=== PATIENT | male | born 1950 | race Caucasian/White ===

== ENCOUNTER → 2020-03-05 08:57 | Outpatient (CLI) | payer OTHER, SELFPAY ==
--- NOTE | ~2020-03-05 | MR_ITS ---
EXAMINATION: MR shoulder RT wo con DATE: 03/05/2020 09:33 INDICATION: Right shoulder pain TECHNIQUE: Magnetic resonance imaging (MRI) of the right shoulder was performed without intravenous c ontrast. Sequences included axial PD-weighted FS FSE, coronal oblique PD-weighted FS FSE, coronal obl ique T2-weighted FS FSE, sagittal PD-weighted FS FSE, and sagittal T1-weighted SE. COMPARISON: None. FINDINGS: Coracoacromial arch: The acromion undersurface is curved in morphology (type II). Mild thickening and increased signal of the acromial insertion of the coracoacromial ligament. Moderate acromioclavicular osteoarthritis. Rotator cuff: Full-thickness tear along the superior facet footplate of the supraspinatus tendon which transitions to an articular sided tear involving the majority of the thickness of the infraspinatus tendon. The s upraspinatus tear margin is retracted approximately 4 cm medial from the region of the footplate. The re is moderate tendinopathy along the tear margin of the retracted supraspinatus tendon. The teres mi nor tendon is normal. The full-thickness tear extends anteriorly across the rotator cuff interval to involve the cephalad half of the lesser tuberosity footplate of the subscapularis tendon with moderat e tendinopathy of the intact caudal half of the subscapularis tendon. There is medial retraction of t he supraspinatus muscle belly and mild fatty atrophy of the infraspinatus muscle belly. Biceps tendon, glenoid labrum and glenohumeral cartilage: Moderate tendinopathy without discrete tear of the intra-articular long head biceps tendon. Diffuse d egenerative tearing of the glenoid labrum most prominent at the superior to posterior superior and in ferior glenoid. Partial-thickness cartilage loss with smooth chondral surface along the cephalad half of the glenoid. There is chondral swelling along the inferior rim of the glenoid. Fluid: Small glenohumeral joint effusion which extends to the full-thickness rotator cuff tears to communica te with a small amount of fluid in the subacromial/subdeltoid bursa and subcoracoid bursa. No loose o steochondral bodies. Bones: Mild cephalad subluxation of the humeral head with respect to the glenoid with narrowing of the subac romial space which measures approximately 3.5 mm between the cortices of the apex of the humeral head and the undersurface of the acromion. No fracture or pathologic marrow replacing process. IMPRESSION: 1. Full-thickness rotator cuff tear involving the entire supraspinatus tendon and cephalad half of th e subscapularis tendon transitioning to a moderate to severe articular sided tear of the infraspinatu s tendon. 2. Moderate tendinopathy without discrete tear of the intra-articular long head biceps tendon. 3. Mild glenohumeral osteoarthritis with diffuse labral degeneration. 4. Moderate acromioclavicular osteoarthritis. Reviewed, dictated and finalized at location A. IMPRESSION: 1. Full-thickness rotator cuff tear involving the entire supraspinatus tendon a nd cephalad half of the subscapularis tendon transitioning to a moderate to sev ere articular sided tear of the infraspinatus tendon. 2. Moderate tendinopathy without discrete tear of the intra-articular long head biceps tendon. 3. Mild glenohumeral osteoarthritis with diffuse labral degeneration. 4. Moderate acromioclavicular osteoarthritis.
== END ==
PROVIDERS: PCP Family Medicine
DX: M19.011 Primary osteoarthritis, right shoulder (principal)
CPT/HCPCS: 73221

== ENCOUNTER 2021-02-09 12:33 | Outpatient (RCR) | payer OTHER, SELFPAY ==
[2021-02-09 12:47] VITALS: BMI 34.9
[2021-02-09 12:50] VITALS: BMI 34.9
== END 2021-03-23 10:55 | disposition home or self-care (01) ==
LOC: ANHDMC 12:33
PROVIDERS: PCP Family Medicine; Visit Provider Family Medicine
DX: E11.65 Type 2 diabetes mellitus with hyperglycemia (principal); Z71.3 Dietary counseling and surveillance
CPT/HCPCS: 97802